=== PATIENT | female | born 1935 | race Caucasian/White ===

== ENCOUNTER 2017-02-26 10:41 | Emergency (ER) | payer MEDICARE ==
[2017-02-26] MEDS ORDERED: COZAAR100 MG PO (11:21)
[2017-02-26] MEDS ORDERED: AMLODIPINE BESY10 MG PO (11:21)
[2017-02-26] MEDS ORDERED: TOPROL XL100 MG PO (11:22)
[2017-02-26] MEDS ORDERED: HYDROCHLOROT12.5 M1 PO (11:22)
[2017-02-26] MEDS ORDERED: ASPIRIN LOW DOS81 MG PO (11:23)
[2017-02-26] MEDS ORDERED: EC-NAPROSYN500 MG PO (11:33)
[2017-02-26 12:06] VITALS: BP 130/80
== END 2017-02-26 11:45 | disposition home or self-care (01) ==
LOC: ED 10:41
DX: S42.201A Unspecified fracture of upper end of right humerus, initial encounter for closed fracture (principal); I10 Essential (primary) hypertension; M19.90 Unspecified osteoarthritis, unspecified site; W18.30XA Fall on same level, unspecified, initial encounter; Y92.009 Unspecified place in unspecified non-institutional (private) residence as the place of occurrence of the external cause; Z91.81 History of falling

== ENCOUNTER 2017-09-02 13:18 | Emergency (ER) | payer MEDICARE ==
[~2017-09-02] VITALS: Ht 170.2 cm; Wt 90.0 kg
[~2017-09-02 13:18] MED LIST: AMLODIPINE BESY10 MG PO; ASPIRIN LOW DOS81 MG PO; COZAAR100 MG PO; EC-NAPROSYN500 MG PO; HYDROCHLOROT12.5 M1 PO; TOPROL XL100 MG PO
[2017-09-02 15:04] VITALS: BP 131/66
== END 2017-09-02 15:04 | disposition home or self-care (01) ==
LOC: ED 13:18
DX: S80.01XA Contusion of right knee, initial encounter (principal); M19.90 Unspecified osteoarthritis, unspecified site; I10 Essential (primary) hypertension; W54.1XXA Struck by dog, initial encounter; Y92.009 Unspecified place in unspecified non-institutional (private) residence as the place of occurrence of the external cause

== ENCOUNTER 2022-10-30 14:14 | Emergency (ER) | payer MEDICARE ==
[2022-10-30] VITALS (11 sets, daily range): BP systolic 111–133; BP diastolic 47–64
[~2022-10-30] VITALS: Ht 170.2 cm; Wt 58.9 kg
[2022-10-30 15:23] LABS: BASO% 0.1 % (0-3); EOS% 0.3 % (0-8); IMMATURE GRANULOCYTES 0.3 % (0.0-5.0); LYMPH% 13.5 % (15-41); MEAN CELL VOLUME 93.9 fL CALC (80.0-100.0); MEAN CORPUSCULAR HGB 31.2 pG CALC (26.0-32.0); MEAN CORPUSCULAR HGB CONC 33.2 g/dL CAL (32.0-36.0); MONO% 6.8 % (2-13); NEUT# 10.79 thou/uL (2.00-7.15); RED BLOOD COUNT 3.43 mill/uL (4.20-5.60)
[2022-10-30 15:28] LABS: HEMATOCRIT 32.2 % (37.0-47.0); HEMOGLOBIN 10.7 g/dl (12.0-16.0)
[2022-10-30 15:35] LABS: ALBUMIN 3.9 g/dL (3.2-5.0); ALKALINE PHOSPHATASE 137 u/l (38-126); ANION GAP 18 (6-22 (CALC)); BILIRUBIN, TOTAL 0.7 mg/dL (0.02-1.3); BUN 48 mg/dL (8-23); BUN/CREATININE RATIO 28 (12-20 (CALC)); CARBON DIOXIDE 18 mmol/l (22-30); CHLORIDE 105 mmol/l (95-108); CREATININE 1.7 mg/dL (0.5-1.0); GFR FOR AFR.AMER. 34 ML/MIN (>=60 (CALC)); GFR OTHER RACES 28 ML/MIN (>=60 (CALC)); INTERNATIONAL NORMALIZED RATIO 1.1 RATIO (0.7-1.3); POTASSIUM 4.3 mmol/l (3.5-5.1); PROTHROMBIN TIME 10.3 SECONDS (9.0-12.5); SGOT/AST 53 u/l (9-36); SODIUM 136 mmol/l (137-146); TOTAL PROTEIN 8.1 g/dL (6.3-8.2)
[2022-10-30] MEDS ORDERED: PROAIR HFA IN (16:23)
[2022-10-30] MEDS ORDERED: PREDNISONE20 MG PO (16:23)
[2022-10-30] MEDS ORDERED: ZPAK PO (16:23)
== END 2022-10-30 16:48 | disposition home or self-care (01) ==
LOC: ED 14:14
PROVIDERS: Nurse Practitioner
DX: J44.1 Chronic obstructive pulmonary disease with (acute) exacerbation (principal); I10 Essential (primary) hypertension; Z20.822 Contact with and (suspected) exposure to COVID-19

== ENCOUNTER 2022-11-07 15:30 | Emergency (ER) | payer MEDICARE ==
[2022-11-07] VITALS (11 sets, daily range): BP systolic 91–119; BP diastolic 35–52
[~2022-11-07] VITALS: Ht 170.2 cm; Wt 68.0 kg
[~2022-11-07 15:30] MED LIST changes: +PREDNISONE20 MG PO; +PROAIR HFA IN; +ZPAK PO
[2022-11-07 16:28] LABS: EOS% 0.3 % (0-8); HEMOGLOBIN 11.4 g/dl (12.0-16.0); IMMATURE GRANULOCYTES 1.9 % (0.0-5.0); LYMPH% 8.5 % (15-41); MEAN CELL VOLUME 92.6 fL CALC (80.0-100.0); MEAN CORPUSCULAR HGB 31.1 pG CALC (26.0-32.0); MEAN CORPUSCULAR HGB CONC 33.5 g/dL CAL (32.0-36.0); MONO% 6.9 % (2-13); NEUT# 13.6 thou/uL (2.00-7.15); NEUT% 82.4 % (42-76); RED BLOOD COUNT 3.67 mill/uL (4.20-5.60); RED CELL DISTRI WIDTH 12.8 % (11.5-15.5)
[2022-11-07 16:37] LABS: ALBUMIN 3.6 g/dL (3.2-5.0); ALKALINE PHOSPHATASE 101 u/l (38-126); BILIRUBIN, TOTAL 0.7 mg/dL (0.02-1.3); BUN 66 mg/dL (8-23); BUN/CREATININE RATIO 36 (12-20 (CALC)); CHLORIDE 107 mmol/l (95-108); CREATININE 1.9 mg/dL (0.5-1.0); GFR FOR AFR.AMER. 30 ML/MIN (>=60 (CALC)); GFR OTHER RACES 25 ML/MIN (>=60 (CALC)); POTASSIUM 4.6 mmol/l (3.5-5.1); SGOT/AST 28 u/l (9-36); SODIUM 135 mmol/l (137-146); TOTAL PROTEIN 7.7 g/dL (6.3-8.2)
[2022-11-07 16:44] LABS: ANION GAP 19 (6-22 (CALC)); CARBON DIOXIDE 14 mmol/l (22-30)
[2022-11-07] MEDS ORDERED: VIBRAMYCIN100 M2 PO (18:30)
[2022-11-07] MEDS ORDERED: MEDDOSEPAK PO (18:30)
== END 2022-11-07 18:40 | disposition home or self-care (01) ==
LOC: ED 15:30
PROVIDERS: Family Medicine
DX: J44.1 Chronic obstructive pulmonary disease with (acute) exacerbation (principal); I10 Essential (primary) hypertension; Z20.822 Contact with and (suspected) exposure to COVID-19